=== PATIENT | male | born 1945 | race Caucasian/White ===

== ENCOUNTER 2017-09-03 23:52 | Emergency (ER) | payer MEDICARE, MEDICAID ==
[~2017-09-03] VITALS: Ht 172.7 cm; Wt 85.5 kg
[~2017-09-03 23:52] MED LIST: ALLO100T30 PO
[2017-09-03 23:53] VITALS: BP 197/134
[2017-09-04] MEDS ORDERED: INDOMETHACIN 50 MG CAPSULE PO ONE (00:30)
[2017-09-04] MEDS ORDERED: COLCHICINE 0.6 MG TABLET PO ONE (00:30)
[2017-09-04] MEDS ORDERED: INDOMETHACIN 50 MG CAPSULE ONE (00:58)
[2017-09-04] MEDS ORDERED: COLCHICINE 0.6 MG TABLET ONE (01:06)
== END 2017-09-04 01:21 | disposition home or self-care (01) ==
LOC: ED 09-04 00:42
DX: M10.9 Gout, unspecified (principal); M13.0 Polyarthritis, unspecified; I10 Essential (primary) hypertension; I25.2 Old myocardial infarction
CPT/HCPCS: 99283

== ENCOUNTER 2020-07-25 17:54 | Emergency (ER) | payer MEDICARE, MEDICAID ==
[~2020-07-25] VITALS: Ht 172.7 cm; Wt 79.5 kg
[2020-07-25 18:02] VITALS: BP 130/91
--- NOTE | 2020-07-25 18:14 | NUR ---
PT CAME IN [place] RIGHT FOOT PAIN AND SWELLING. "I THINK ITS MY GOUT"
[2020-07-25] MEDS ORDERED: INDOMETHACIN 50 MG CAPSULE PO ONE (19:30)
[2020-07-25] MEDS ORDERED: COLCHICINE 0.6 MG CAPSULE PO ONE (19:30)
[2020-07-25] MEDS ORDERED: COLCHICINE 0.6 MG CAPSULE ONE (19:42)
== END 2020-07-25 20:08 | disposition home or self-care (01) ==
LOC: ED 19:00
DX: M10.071 Idiopathic gout, right ankle and foot (principal); I10 Essential (primary) hypertension; Z87.891 Personal history of nicotine dependence
CPT/HCPCS: 99283